=== PATIENT | female | born 1990 | race Caucasian/White ===

== ENCOUNTER → 2016-10-13 | Outpatient (CLI) | payer OTHER ==
--- NOTE | 2016-10-13 21:51 | DI ---
OBSTETRICAL ULTRASOUND, 10/13/2016 3:03 PM: Clinical History: Antepartum screening. Previous Exam: None at this facility for this . ADJUSTED DATE FROM EARLY OBUS: 05/24/2016. There is a single live IUP currently in vertex presentation. Amnionic fluid content is normal. activity is observed as follows: Cardiac, extremity, and respiratory. The placenta is posterior corpu s and lower uterine segment and Grade 1. heart rate is 160 beats/minute and regular. There is a 3 vessel cord. A 4 chamber heart view is obtained. The aortic arch and descending aorta are normal. No abnormalities are noted. BPD, HC, AC, and FL measurements are 48 mm, 179 mm, 149 mm, and 35 mm, respectively. These measurements correspond to EGA values of 20 weeks 4 days, 20 weeks 3 days, 20 weeks 2 days and 21 weeks 1 day, respectively. Composite EGA is 20 weeks 5 days. The US EDC is 2016. EDC by adjusted date from early OBUS is 02/28/2017. Readin. Single live fetus with vertex presentation and normal amniotic fluid content. Placenta is posteri or corpus and grade 1. 2. The composite EGA is 20 weeks 5 days with an ultrasound EDC of 02/25/2017. The EDC is 02/28/2017 bas ed on the adjusted LMP date of 05/24/2016. 3. antepartum screening is normal.
== END ==
LOC: US 14:59
PROVIDERS: ATTEND Obstetrics & Gynecology
DX: Z36 Encounter for antenatal screening of mother (principal); Z3A.20 20 weeks gestation of pregnancy
CPT/HCPCS: 76805

== ENCOUNTER → 2016-12-03 | Outpatient (CLI) | payer OTHER ==
[2016-12-03 14:09] LABS: HEMATOCRIT 39.8 % (37.0-47.0); HEMOGLOBIN 13.6 g/dL (12.0-16.0); MEAN CORPUSCULAR HEMOGLOBIN 33.6 PG (27-31); MEAN CORPUSCULAR HGB CONC 34.2 g/dL (33-37); MEAN PLATELET VOLUME 9.8 FL (7.4-12.2); RDW COEFFICIENT OF VARIATION 13.8 % (11.5-14.5); RED BLOOD COUNT 4.05 10^6/uL (4.20-5.40); WHITE BLOOD COUNT 9.85 10^3/uL (4.8-10.8)
== END ==
LOC: LAB 12:52
PROVIDERS: ATTEND Obstetrics & Gynecology
DX: Z36 Encounter for antenatal screening of mother (principal); Z3A.27 27 weeks gestation of pregnancy
CPT/HCPCS: 36415; 82950; 85027

== ENCOUNTER → 2017-01-28 | Outpatient (CLI) | payer OTHER | LOC: MOB LAB 14:21 | PROVIDERS: ATTEND Obstetrics & Gynecology | DX: Z36 Encounter for antenatal screening of mother (principal); Z3A.35 35 weeks gestation of pregnancy | CPT/HCPCS: 87150 ==

== ENCOUNTER 2017-02-28 08:11 | Outpatient (CLI) | payer OTHER ==
[2017-02-28 08:52] VITALS: RESP 18; TEMP 98.1
--- NOTE | 2017-02-28 13:38 | DI ---
HISTORY: Post dates. COMPARISON: None. TECHNIQUE: A limited ultrasound was performed. FINDINGS/IMPRESSION: There is a single living intrauterine with a heart rate measuring 122 bpm. The BO measures 12.5. The imaged aspects of the placenta are normal. NOTE: The interpreting Radiologist was not present at the time of ultrasound interrogation.
--- NOTE | 2017-03-07 08:37 | PDOC(PROG) ---
Intake - - Reason for Visit/Chief Complaint: Onset of Labor Admitted From: Home - Estimated Due Date: 02/28/17 Gestational Age in Weeks and Days: 41 Weeks and 0 Days : 2 Para: 1 Term Births: 1 Living Children: 1 - Labs Blood Type and Rh: A+ Group B Strep: Negative Hepatitis B Surface Antigen: Absent HIV: Negative Rubella Status: Immune VDRL/RPR: Absent Maternal - Vital Signs Last Taken Vital Signs: Vital Signs - Last Taken Temperature 98.1 F 02/28/17 08:51 Pulse Rate 104 H 02/28/17 08:51 Respiratory Rate 18 02/28/17 08:51 Blood Pressure 114/74 02/28/17 08:51 Pulse Ox 98 02/28/17 08:51 - Uterine Activity Uterine Contraction Monitor Mode: External Contraction Frequency(minutes): 2-5 Contraction Duration (seconds): 50-90 Uterine Contraction Pattern: Irregular Uterine Tone Measurement Phase: Resting Uterine Contraction Intensity: Moderate - Cervical Exam Cervical Dilation (cm): 3 Cervical Effacement Percentage: 50 Station: -2 Exam Performed By: Harmony Kemp RNC - Vaginal Discharge Vaginal Bleeding Amount: Scant Vaginal Bleeding Description: Bright Red Vaginal Discharge Amount: Scant Vaginal Discharge Description: Watery Vaginal Itching: No Monitoring - Uterine Activity Uterine Contraction Monitor Mode: External Contraction Frequency(minutes): 2-5 Contraction Duration (seconds): 50-90 Uterine Contraction Pattern: Irregular Uterine Tone Measurement Phase: Resting Uterine Contraction Intensity: Moderate Assessment and Plan - Patient Problems (1) False labor after 37 completed weeks of gestation Status: Acute - Assessment / Plan Additional Assessment/Plan Details: -pt presented with contractions and spotting--she walked for 2 hours and had very minimal cervical change. She was discharged home with strict labor precautions. NST was reactive and BO was normal.
== END 2017-02-28 12:32 | disposition home or self-care (01) ==
LOC: OBOP 08:11
PROVIDERS: ATTEND Family Medicine
DX: O47.1 False labor at or after 37 completed weeks of gestation (principal); O26.853 Spotting complicating pregnancy, third trimester; O48.1 Prolonged pregnancy; Z3A.40 40 weeks gestation of pregnancy
CPT/HCPCS: 59025; 76815; 99211

== ENCOUNTER 2017-03-01 00:10 | Inpatient (IN) | payer OTHER ==
[2017-03-01] MEDS ORDERED: Famotidine Inj 20 MG in Normal Saline Flush 10 ML IVP PRN ×4 (00:31)
[2017-03-01] MEDS ORDERED: CefOXitin Inj 2 GM in Sodium Chloride 0.9% 100 ML IV PRN (00:31)
[2017-03-01] MEDS ORDERED: Naloxone Inj 0.01 MG in Normal Saline Flush 1 ML IVP PRN (00:31)
[2017-03-01] MEDS ORDERED: OXYTOCIN 10 UNIT/1 ML IM PRN (00:31)
[2017-03-01] MEDS ORDERED: ONDANSETRON 4 MG/2 ML VIAL IVP PRN ×2 (00:31→06:07)
[2017-03-01] MEDS ORDERED: Phenylephrine Inj 50 MCG in Normal Saline Flush 0.5 ML IVP PRN (00:31)
[2017-03-01] MEDS ORDERED: BUTORPHANOL TARTRATE 2 MG/1 ML VIAL IVP PRN (00:31)
[2017-03-01] MEDS ORDERED: Metoclopramide Inj 10 MG/2 ML VIAL IV PRN (00:31)
[2017-03-01] MEDS ORDERED: LIDOCAINE W/ SODIUM BICARB 0.5 ML SYR SUBD PRN (00:31)
[2017-03-01] MEDS ORDERED: MISOPROSTOL 200 MCG TABLET RECTAL PRN (00:31)
[2017-03-01] MEDS ORDERED: ePHEDrine Inj 5 MG in Normal Saline Flush 1 ML IVP PRN (00:31)
[2017-03-01] MEDS ORDERED: NORMAL SALINE 10 ML SYRINGE FLUSH IVP PRN ×2 (00:31→06:07)
[2017-03-01] MEDS ORDERED: CALCIUM CARBONATE 500 MG (TUMS) CHEWABLE TABLET PO PRN ×2 (00:31→06:07)
[2017-03-01] MEDS ORDERED: CITRIC ACID/SODIUM CITRATE 30 ML CUP PO PRN (00:31)
[2017-03-01] MEDS ORDERED: NALOXONE 0.4 MG/1 ML VIAL IVP PRN (00:31)
[2017-03-01] MEDS ORDERED: Carboprost Inj 250 MCG/ML AMP IM PRN ×2 (00:31→06:07)
[2017-03-01] MEDS ORDERED: TERBUTALINE SULFATE 1 MG/1 ML SDV SUBCUT PRN (00:31)
[2017-03-01] MEDS ORDERED: diphenhydrAMINE 50 MG/1 ML VIAL IVP PRN ×2 (00:31→06:07)
[2017-03-01] MEDS ORDERED: Nalbuphine Inj 20 MG/ML Ampule IVP PRN ×2 (00:31→06:07)
[2017-03-01] MEDS ORDERED: Lidocaine 1% 10 MG/ML - 20 ML VIAL SUBCUT PRN (00:31)
[2017-03-01] MEDS ORDERED: METHYLERGONOVINE MALEATE 0.2 MG/1 ML VIAL IM PRN ×2 (00:31→06:07)
[2017-03-01 00:44] LABS: HEMATOCRIT 41.4 % (37.0-47.0); HEMOGLOBIN 14.3 g/dL (12.0-16.0); MEAN CORPUSCULAR HEMOGLOBIN 33.6 PG (27-31); MEAN CORPUSCULAR HGB CONC 34.5 g/dL (33-37); MEAN CORPUSCULAR VOLUME 97.4 FL (81-99); MEAN PLATELET VOLUME 10.3 FL (7.4-12.2); RED BLOOD COUNT 4.25 10^6/uL (4.20-5.40)
[2017-03-01] MEDS: fentaNYL Inj 100 MCG/2 ML VIAL IV PRN ×3 (00:44→02:37)
[2017-03-01] MEDS ORDERED: Lactated Ringers-OB Dept 1,000 ML PRIMARY IV SCH (00:45)
[2017-03-01] MEDS ORDERED: Oxytocin 20 Units + LR 1,000 ML IV SCH ×2 (00:45→06:07)
[2017-03-01] MEDS ORDERED: BUPivacaine Inj 0.25% PF - 10ml vial ONE (01:33)
[2017-03-01] MEDS ORDERED: fentaNYL Inj 100 MCG/2 ML VIAL ONE (01:33)
--- NOTE | 2017-03-01 01:51 | CRNA.PROCE ---
Central Neuraxis Block Placenh - - Safety Measures: Time Out Taken, Site Verified - - Type of Block: Subarachnoid Reason for Block: Analgesia Moniters Used During Block: SPO2, NIBP Positioning: Sitting Skin Prep Used: Betadine Draped: Yes Skin Infiltration - Enter Amount Used in Comment Field: 1% Xylocaine (mL): Yes ( wheal) Introducer User: 23 Gauge Spinal Needle Used: 25 Raghu 80 mm Local Anesthetic - Enter Amount Used in Comment Field: Other Local Anesthetic: Yes (5mg of 0.25% Marcaine) Additive Used - Enter Amount Used in Comment Field: Fentanyl (mcg): Yes (20mcg) - - Additional Details: Requests analgesia for CALISTA. Has changed 3cm in just over an hour. History reviewed and discussed the advantages and disadvantages of both epidural analgesia and intrathecal analgesia in her rapidly changing state. She wishes to proceed with intrathecal analgesia. Laboratory Results 03/01/17 Range/Units 00:42 WBC 11.75 H (4.8-10.8) 10^3/uL RBC 4.25 (4.20-5.40) 10^6/uL Hgb 14.3 (12.0-16.0) g/dL Hct 41.4 (37.0-47.0) % MCV 97.4 (81-99) FL MCH 33.6 H (27-31) PG MCHC 34.5 (33-37) g/dL RDW Std Deviation 47.2 (39-50) fL RDW Coeff of Jaden 13.7 (11.5-14.5) % Plt Count 191 (140-350) 10*3/uL MPV 10.3 (7.4-12.2) FL Vital Signs (Last 8 hours) Temp Resp BP Pulse Ox 03/01/17 00:45 98.4 F 20 114/78 97
[2017-03-01] MEDS ORDERED: Ropivacaine 0.2% VIAL 20 ML ONE (02:07)
--- NOTE | 2017-03-01 02:17 | CRNA.PROGR ---
Anesthesia Note Anesthesia Progress Note: Initial relief from intrathecal inadequate. Discussed options with her and risks/benefits and she wishes to repeat. Intrathecal placement repeated as per initial placement. Clear csf obtained at same site easliy on first pass. 4mg of 0.2% ropivacaine used.
--- NOTE | 2017-03-01 04:53 | OB.DEL.SUM ---
Delivery Note Delivery Summary: Pt is a 26 yo G2 now P2 at 40 1/7 weeks by 13 week u/s who presented earlier this evening with painful, regular uterine contractions and cervical change from earlier in the day when she was evaluated on labor and delivery. She was 5/ 70/-1. She progressed on her own to 8/100/0 and had an intrathecal placed x2 for analgesia. She was complete and +1 at 0315. Over a series of several pushes , she delivered a viable male infant over an intact perineum. The baby delivered in the straight OA presentation. The nose and mouth were suctioned with the bulb suction and the cord was doubly clamped by myself and cut by the father of the baby. Baby was placed on mom's chest. Time of delivery 0352. The placenta delivered spontaneously and intact, with a 3 vessel cord, at 0354. 20 mU of pitocin were infused. The vagina and perineum were examined and a first degree perineal laceration was noted and repaired in the normal fashion with 3- 0 vicryl rapide suture. There was excellent hemostasis. Apgars were 6 at 1 minute and 8 at 5 minutes. Baby weighed 7#10.7 and was 21 inches long. Both mom and baby tolerated delivery well and are in stable condition at this time.
[2017-03-01] MEDS ORDERED: Methylergonovine Tab 0.2 MG TAB PO PRN (06:07)
[2017-03-01] MEDS ORDERED: diphenhydrAMINE 25 MG CAPSULE PO PRN (06:07)
[2017-03-01] MEDS ORDERED: BENZOCAINE/MENTHOL SPRAY 56 GM BOTTLE TOPICAL PRN (06:07)
[2017-03-01] MEDS ORDERED: LANOLIN HPA 40 GM TUBE TOPICAL PRN (06:07)
[2017-03-01] MEDS ORDERED: HYDROcodone-APAP 5 MG -325 MG TABLET PO PRN (06:07)
[2017-03-01] MEDS ORDERED: ACETAMINOPHEN 325 MG TABLET PO PRN (06:07)
[2017-03-01] MEDS ORDERED: Ondansetron ODT Tab 4 MG TAB PO PRN (06:07)
[2017-03-01] MEDS ORDERED: OXYTOCIN 10 UNIT/1 ML IM ONE (06:07)
[2017-03-01] MEDS ORDERED: GLYCERIN/WITCH HAZEL 1 BOX TOPICAL PRN (06:07)
[2017-03-01] MEDS ORDERED: MISOPROSTOL 200 MCG TABLET RECTAL ONE (06:07)
[2017-03-01] MEDS ORDERED: DIPH,PERTUSS,TET(ADACEL) VAC/PF 0.5 ML (Tdap) IM SCH (06:07)
[2017-03-01] MEDS: IBUPROFEN 800 MG TABLET PO PRN ×2 (08:41→16:35)
[2017-03-01] MEDS: DOCUSATE 100 MG CAPSULE PO SCH ×2 (08:41→21:41)
--- NOTE | 2017-03-01 13:16 | CRNA.PROGR ---
Anesthesia Note Anesthesia Progress Note: She is just out of the shower and visiting with spouse, has been ambulatory ad tristen with no complaints. Discussed her anesthetic course and she has not questions or concerns at this time. Laboratory Results 03/01/17 Range/Units 00:42 WBC 11.75 H (4.8-10.8) 10^3/uL RBC 4.25 (4.20-5.40) 10^6/uL Hgb 14.3 (12.0-16.0) g/dL Hct 41.4 (37.0-47.0) % MCV 97.4 (81-99) FL MCH 33.6 H (27-31) PG MCHC 34.5 (33-37) g/dL RDW Std Deviation 47.2 (39-50) fL RDW Coeff of Jaden 13.7 (11.5-14.5) % Plt Count 191 (140-350) 10*3/uL MPV 10.3 (7.4-12.2) FL Vital Signs (Last 8 hours) Temp Pulse Pulse Resp BP Pulse Ox 03/01/17 09:00 98.2 F 92 16 121/68 97 03/01/17 07:00 92
--- NOTE | 2017-03-01 13:56 | OB.PROGRES ---
Subjective Post Day: 1 Pain Management: PO Thapa Catheter: No Flatus: Yes Diet: Regular [place] Feeding Method: Exculsively Ambulating: Yes Objective - General General Appearance: POSITIVE: No Acute Distress, Cooperative - Cardiovacular Cardiovascular Exam: POSITIVE: RRR, No Murmur Edema: +1 Pedal Edema Extremities: Negative Candelaria's - Bilaterally - Respiratory Respiratory Exam: POSITIVE: Clear to Auscultation - Bilaterally, Breathing Non Labored - Abdomen Bowel Sounds: Present Assesstment / Plan (1) Status post vaginal delivery Current Visit: Yes Status: Acute Assessment / Plan: -routine cares. -rh positive. -rubella immune. -breast feeding going well. -probable d/c home tomorrow.
[2017-03-01] MEDS ORDERED: ceFAZolin Inj 2gm (Premix) 50 ML IV ONE (21:17)
[2017-03-02 04:24] VITALS: TEMP 98.1
[2017-03-02 04:52] LABS: HEMATOCRIT 39.6 % (37.0-47.0); HEMOGLOBIN 13.3 g/dL (12.0-16.0); MEAN CORPUSCULAR HEMOGLOBIN 33.6 PG (27-31); MEAN CORPUSCULAR HGB CONC 33.6 g/dL (33-37); MEAN PLATELET VOLUME 10.2 FL (7.4-12.2); RED BLOOD COUNT 3.96 10^6/uL (4.20-5.40)
--- NOTE | 2017-03-02 08:32 | DCSUMMARY ---
Hospitalization Summary Admit Date: 02/28/17 Discharge Date: 03/02/17 Primary Diagnosis:: Term , Delivered Delivery Type: Vaginal Hospital Course: Normal, uncomplicated labor, delivery, and course. / Postop Complications: None Complications: None Exam - Vitals Vital Signs: Vital Signs Temperature 98.1 F Temperature Source Oral Pulse Rate [Apical] 92 Pulse Rate [Pulse Oximeter] 92 Pulse Rate 93 Respiratory Rate 18 Blood Pressure [Right Arm] 114/80 Blood Pressure 106/84 Pulse Ox 98 Oxygen Delivery Method Room Air Height 5 ft 5.5 in Weight 181 lb
[2017-03-02] MEDS: DOCUSATE 100 MG CAPSULE PO SCH (08:56)
[2017-03-02] MEDS: IBUPROFEN 800 MG TABLET PO PRN (08:56)
[2017-03-02] MEDS ORDERED: Prenatal Multivitamin Tab 1 TAB TAB PO SCH (09:00)
[2017-03-02 09:07] VITALS: RESP 16
== END 2017-03-02 12:35 | disposition home or self-care (01) | DRG 775 ==
LOC: OBIP 00:10
PROVIDERS: ADMIT Family Medicine; ATTEND Family Medicine
PROC: 10E0XZZ Delivery of Products of Conception, External Approach (ICD-10-PCS; principal; 2017-03-01)
PROC: 0HQ9XZZ Repair Perineum Skin, External Approach (ICD-10-PCS; 2017-03-01)
DX: O70.0 First degree perineal laceration during delivery (principal); Z3A.40 40 weeks gestation of pregnancy; Z37.0 Single live birth
CPT/HCPCS: 36415; 85027; J0690; J2210; J3010; J7120